=== PATIENT | female | born 1960 | race African-American/Black ===

== ENCOUNTER 2016-05-01 18:56 | Emergency (ER) | payer BC ==
[~2016-05-01] VITALS: Ht 175.3 cm; Wt 56.7 kg
[~2016-05-01 18:56] MED LIST: ALPR1TAB7 PO; BACL10TA PO; CETI10CA PO; HIV MED PO; VALG450T PO
--- NOTE | 2016-05-01 19:30 | NUR ---
Patient from triage for painful urination for couple of days, burning, denies sense of urgency and frequency.Pt stated 10/10 for pain. Pt is fully AOX3 ambulatory, accompanied by her . Pt requesting if she can have xray, but MD to decide.
[2016-05-01] MEDS ORDERED: IBUPROFEN 800 MG TABLET PO ONE (19:45)
--- NOTE | 2016-05-01 19:45 | NUR ---
Pyridium and Ibuprofen given by RN as prescribed.
[2016-05-01] MEDS ORDERED: PHENAZOPYRIDINE HCL 100 MG TABLET PO ONE (20:00)
[2016-05-01] MEDS ORDERED: PHENAZOPYRIDINE HCL 100 MG TABLET ONE (20:08)
[2016-05-01] MEDS ORDERED: IBUPROFEN 800 MG TABLET ONE (20:08)
[2016-05-01 20:16] LABS: *BILIRUBIN,URIN NEGATIVE (NEGATIVE); *BLOOD, URINE NEGATIVE (NEGATIVE); *CLARITY,URINE CLEAR (CLEAR); *COLOR,URINE YELLOW (YELLOW); *KETONES,URINE NEGATIVE (NEGATIVE); *PROTEIN,URINE 1+ (NEGATIVE); *UROBILINOGEN,URINE 0.2 E.U./dl (NORMAL); LEUKOCYTE ESTERASE ,URINE NEGATIVE (NEGATIVE); NITRITE, URINE NEGATIVE (NEGATIVE); PH,URINE 5.5 (5.0-8.0); UGLUCOSE TRACE (NEGATIVE)
[2016-05-01 20:25] LABS: WBC,URINE 0-3 /HPF (0-3)
[2016-05-01 20:26] LABS: SQUAMOUS EPITHELIAL CELL,UR FEW /HPF (NONE SEEN)
--- NOTE | 2016-05-01 21:00 | NUR ---
Reassessed pain, pt stated got better, pain level down to 7/10. remained at the bedside.
--- NOTE | 2016-05-01 21:00 | NUR ---
Followed up US.
--- NOTE | 2016-05-01 21:30 | NUR ---
Ultrasound is on going.
--- NOTE | 2016-05-01 21:45 | NUR ---
US completed, Dr. Strong now with patient at the bedside.
--- NOTE | 2016-05-01 22:06 | NUR ---
Pt discharged against medical advice, pt signed witnessed by RN and .Patient discharged to home in stable conditon. Written and verbal after care instructions given. Patient verbalizes understanding of instructions. Pt stated that her pain went down to 5/10.Pt stated that she felt a lot better.Left with her . Prescription for pain given as ordered, instructions given and verbalized understanding.
[2016-05-01 22:09] VITALS: BP 120/88
== END 2016-05-01 22:06 | disposition home or self-care (01) ==
LOC: ER 19:04
DX: R30.0 Dysuria (principal); F41.9 Anxiety disorder, unspecified; G43.909 Migraine, unspecified, not intractable, without status migrainosus; F17.200 Nicotine dependence, unspecified, uncomplicated; Z88.0 Allergy status to penicillin; Z88.2 Allergy status to sulfonamides; Z88.6 Allergy status to analgesic agent
CPT/HCPCS: A4663

== ENCOUNTER 2016-11-12 10:48 | Emergency (ER) | payer BC ==
[~2016-11-12] VITALS: Ht 175.3 cm; Wt 62.6 kg
--- NOTE | 2016-11-12 11:07 | NUR ---
PT DOES NOT REMEMBER NAME OF HIV MED.
[2016-11-12] MEDS ORDERED: FAMOTIDINE. 20 MG/2 ML VIAL IV ONE (11:15)
[2016-11-12] MEDS ORDERED: IV NORMAL SALINE 1000 ML BAG IV ONE (11:15)
[2016-11-12] MEDS ORDERED: DICYCLOMINE HCL 10 MG/5 ML UDC LIQ PO ONE (11:15)
[2016-11-12] MEDS ORDERED: MAG HYDROX/AL HYDROX/SIMETH 30 ML LIQUID UDC PO ONE (11:15)
[2016-11-12 11:22] LABS: *BLOOD, URINE 2+ (NEGATIVE); *CLARITY,URINE SLIGHTLY CLOUDY (CLEAR); *COLOR,URINE YELLOW (YELLOW); *KETONES,URINE 1+ (NEGATIVE); *PROTEIN,URINE 1+ (NEGATIVE); *UROBILINOGEN,URINE 0.2 E.U./dl (NORMAL); LEUKOCYTE ESTERASE ,URINE 1+ (NEGATIVE); NITRITE, URINE NEGATIVE (NEGATIVE); PH,URINE 5.5 (5.0-8.0); UGLUCOSE NEGATIVE (NEGATIVE)
[2016-11-12 11:29] LABS: BASOPHILS # (AUTO) 0.1 K/uL (0.0-8.0); BASOPHILS % (AUTO) 1.1 % (0.0-2.0); EOSINOPHILS % (AUTO) 0.3 % (0.0-7.0); HEMATOCRIT 42.2 % (37-47); HEMOGLOBIN 13.9 G/DL (12.0-16.0); LYMPHOCYTES # (AUTO) 3.3 K/UL (0.8-4.8); LYMPHOCYTES % (AUTO) 42.2 % (20.5-51.5); MEAN CORPUSCULAR HEMOGLOBIN 29.6 UUG (27.0-31.0); MEAN CORPUSCULAR HGB CONC 33 g/dL (32.0-37.0); MEAN CORPUSCULAR VOLUME 89.6 FL (81.0-99.0); MONOCYTES # (AUTO) 0.5 K/UL (0.1-1.30); MONOCYTES % (AUTO) 5.9 % (0.0-11.0); NEUTROPHILS # (AUTO) 3.9 K/UL (1.8-8.9); NEUTROPHILS % (AUTO) 50.5 % (38.5-71.5); PLATELET COUNT (AUTO) 215 K/UL (150-450); RED BLOOD CELL COUNT(AUTO) 4.71 MIL/UL (4.2-5.4); WHITE BLOOD COUNT (AUTO) 7.8 K/UL (4.0-11.2)
--- NOTE | 2016-11-12 11:31 | NUR ---
AFTER PLACING SALINE LOCK ON LT AC, PT STARTED TO YELL TO REMOVE HL. SALINE LOCK REMOVED PER PT'S REQUEST. PT ALSO REFUSED IV MEDS. AWARE.
[2016-11-12 11:40] LABS: CREATININE 0.9 mg/dL (0.6-1.3); POTASSIUM 3.6 mmol/L (3.5-5.1)
[2016-11-12 11:45] LABS: *BILIRUBIN,URIN 1+ (NEGATIVE)
[2016-11-12 11:45] LABS: BILIRUBIN,DIRECT 0.2 mg/dL (0.0-0.2); BILIRUBIN,TOTAL 0.8 mg/dL (0.2-1.0); TOTAL PROTEIN, SERUM 8.3 g/dL (6.4-8.2)
[2016-11-12] MEDS ORDERED: MAG HYDROX/AL HYDROX/SIMETH 30 ML LIQUID UDC ONE (11:48)
[2016-11-12] MEDS ORDERED: DICYCLOMINE HCL 10 MG/5 ML UDC LIQ ONE (11:49)
[2016-11-12 12:06] LABS: BACTERIA,URINE FEW /HPF (NONE SEEN); SQUAMOUS EPITHELIAL CELL,UR FEW /HPF (NONE SEEN)
--- NOTE | 2016-11-12 12:21 | NUR ---
PT SITTING IN BED, DENIES PAIN.
--- NOTE | 2016-11-12 13:20 | NUR ---
DR WOODSON MADE PATIENT AWARE OF TEST RESULTS WILL BE DC HOME.
[2016-11-12 13:24] VITALS: BP 135/79
--- NOTE | 2016-11-12 13:25 | NUR ---
Patient discharged to home in stable conditon. Written and verbal after care instructions given. Patient verbalizes understanding of instructions.
== END 2016-11-12 13:27 | disposition home or self-care (01) ==
LOC: ER 10:48
DX: R10.9 Unspecified abdominal pain (principal); R11.0 Nausea; F17.200 Nicotine dependence, unspecified, uncomplicated; Z88.0 Allergy status to penicillin
CPT/HCPCS: 36415; 71010; 83690; 85025; 93005; A4663; J7030